=== PATIENT | male | born 1955 | race Caucasian/White ===

== ENCOUNTER → 2022-02-27 | Outpatient (CLI) | payer MEDICARE ==
[~2022-02-27] MED LIST: ANTIVERT 25MG T25 MG PO; ASPIR-LOW81 MG PO; BETAPACE80 MG PO; BUSPAR 5MG TABLE5 MG PO; ELIQUIS5 MG PO; ESSENTIAL DAIL1 EACH PO; IMDUR ER TAB 3030 MG PO; ISORDIL TAB 3030 MG PO; LANOXIN TAB0.125 MG PO; LIPITOR40 MG PO; LOPRESSOR50 MG PO; PRINIVIL5 MG PO; PROTONIX40 MG PO; ZANTAC150 MG PO; ZYRTEC10 MG PO
[2022-02-27 15:51] LABS: BUN/CREATININE RATIO 21 (0-10)
== END ==
LOC: CT 14:26
DX: I71.9 Aortic aneurysm of unspecified site, without rupture (principal); N28.89 Other specified disorders of kidney and ureter
CPT/HCPCS: 36415; 71275; 80048; Q9967